=== PATIENT | male | born 1970 | race Caucasian/White ===

== ENCOUNTER 2017-10-05 11:58 | Emergency (ER) | payer MEDICAID ==
[2017-10-05] MEDS: LIDOCAINE 1% (MDV) 20 ML INJ SC (13:22)
[2017-10-05] MEDS: DIPHTH/TET/ACEL PERTUSS (ADULT) 0.5 ML VIAL IM* (13:27)
== END 2017-10-05 15:46 | disposition home or self-care (01) ==
LOC: FTE 11:58
DX: S61.412A Laceration without foreign body of left hand, initial encounter (principal); W26.0XXA Contact with knife, initial encounter; Y92.9 Unspecified place or not applicable; Z23 Encounter for immunization
CPT/HCPCS: 12002; 73130-LT; 90471; 90715; 99283-25

== ENCOUNTER 2017-10-07 09:30 | Emergency (ER) | payer MEDICAID | END 2017-10-07 10:58 | disposition home or self-care (01) | LOC: E/R 09:30 | DX: Z48.01 Encounter for change or removal of surgical wound dressing (principal) | CPT/HCPCS: 99281; Z7502 ==

== ENCOUNTER 2018-03-19 06:45 | Emergency (ER) | payer MEDICAID ==
[2018-03-19] MEDS: KETOROLAC 60 MG INJ IM (07:41)
== END 2018-03-19 08:41 | disposition home or self-care (01) ==
LOC: FTE 06:45
DX: M54.32 Sciatica, left side (principal)
CPT/HCPCS: 72100; 96372; 99284-25